=== PATIENT | male | born 1985 | race Caucasian/White ===

== ENCOUNTER → 2016-12-23 19:24 | Emergency (ER) | payer SELFPAY ==
[~2016-12-23 19:24] MED LIST: HYDROcodone/ACETAMIN 5-325 MG* 1 TAB PO ONE; Penicillin VK TAB* 250 MG PO ONE
[2016-12-23 21:07] VITALS: BP 141/94
--- NOTE | 2016-12-23 21:15 | ED ---
Throat Pain/Nasal Congestion - HPI Summary HPI Summary: Patient arrives to ED with CC of pain over right lower molar radiating to the jaw and ear with most pain radiating to the anterior jaw. Denies trismus, drooling or dysphagia. Pain is 10/10, sharp and throbbing. He has tried to take tylenol, ibuprofen, ambesol and orajel without relief. Denies airway compromise or SOB. Denies ear pain, eye pain, blurry vision or double vision. Otherwise healthy. Pain is worse with chewing and cold drinks, better with nothing. Patient denies dental care for several years. He is attempting to have all his teeth pulled and is working with [facility] for the appt. Pain has been present for several days with no worsening pain and slight swelling over the area of concern. Patient is a smoker. - History of Current Complaint Chief Complaint: EDDentalPain Time Seen by Provider: 12/23/16 20:01 Hx Obtained From: Patient Onset/Duration: Sudden Onset Severity: Moderate - Epiglottits Risk Factors Epiglottis Risk Factors: Negative - Allergies/Home Medications Allergies/Adverse Reactions: Allergies Allergy/AdvReac Type Severity Reaction Status Date / Time No Known Allergies Allergy Verified 12/23/16 19:34 PMH/Surg Hx/FS Hx/Imm Hx Previously Healthy: Yes Sensory History: Denies: Hx Contacts or Glasses Opthamlomology History: Denies: Hx Contacts or Glasses - Immunization History Hx Pertussis Vaccination: No Immunizations Up to Date: Unable to Obtain/Confirm Infectious Disease History: No Infectious Disease History: Denies: History Other Infectious Disease, Traveled Outside the [place] in Last 30 Days - Family History Known Family History: Positive: None - Social History Occupation: Employed Full-time Lives: With Family Alcohol Use: Occasionally Hx Substance Use: No Substance Use Type: Reports: None Hx Tobacco Use: Yes Smoking Status (MU): Heavy Every Day Tobacco Smoker Type: Cigarettes Have You Smoked in the Last Year: Yes Review of Systems Constitutional: Negative Eyes: Negative Positive: Dental Pain Cardiovascular: Negative Respiratory: Negative Positive: no symptoms reported, see HPI Neurological: Negative All Other Systems Reviewed And Are Negative: Yes Physical Exam Triage Information Reviewed: Yes Vital Signs On Initial Exam: Initial Vitals Temp Pulse Resp BP Pulse Ox 98.7 F 73 16 138/89 100 12/23/16 19:35 12/23/16 19:35 12/23/16 19:35 12/23/16 19:35 12/23/16 19:35 Vital Signs Reviewed: Yes Appearance: Positive: Well-Appearing, Well-Nourished Skin: Positive: Warm, Skin Color Reflects Adequate Perfusion Head/Face: Positive: Normal Head/Face Inspection Eyes: Positive: EOMI, KEREN, Conjunctiva Clear Dental: Positive: Percussion Tenderness @, Gross Decay/Caries @, Dental Fracture @ Neck: Positive: Supple, No Lymphadenopathy Respiratory/Lung Sounds: Positive: Clear to Auscultation, Breath Sounds Present Musculoskeletal: Positive: Normal, Strength/ROM Intact Neurological: Positive: Normal, Sensory/Motor Intact, Alert, Oriented to Person Place, Time Psychiatric: Positive: Normal AVPU Assessment: Alert Diagnostics - Vital Signs Vital Signs Temp Pulse Resp BP Pulse Ox 12/23/16 21:05 99.3 F 63 18 141/94 12/23/16 19:35 98.7 F 73 16 138/89 100 - Laboratory Lab Statement: Any lab studies that have been ordered have been reviewed, and results considered in the medical decision making process. EENT Course/Dx - Course Course Of Treatment: No dental abscess or lesions seen over area of concern. No erythema at site of pain. No drainage from area. Several dental caries, cavities, crowding and broken teeth throughout. Pain on palpation over left lower mandible. No TMJ tenderness. Pain with opening and closing the mouth. Slight trimus is noted on exam, but patient notes he does not wish to open wide d/t pain. Poor dental hygiene and outpatient dental care. Will treat for possible dental infection/abscess based on symptoms of pain and radiation to jaw and ear. No allergies. Will treat with Penicillin. ISTOP reveals no medication dispensed. Will give 3 days oxycodone for relief. He is given first doses of penicillin and oxycodone in the ED. Patient to follow up immediately with dentist. - Differential Diagnoses Differential Diagnoses: Dental Abscess, Dental Caries, Odontogenic Pain - Diagnoses Provider Diagnoses: Pain, dental Discharge - Discharge Plan Condition: Stable Disposition: HOME Prescriptions: Penicillin VK 500 MG TAB(NF) [Penicillin VK 500 mg Tab(NF)] 500 mg PO QID #28 tab MDD 4 oxyCODONE/Acetamin 10/325(NF) [Percocet 10/325 (NF)] 1 tab PO Q8H #9 tab MDD 3 Patient Education Materials: Toothache (ED) Referrals: No Primary Care Phys,NOPCP [Primary Care Provider] - Additional Instructions: You have been diagnosed with dental pain with possible infection: Antibiotics as prescribed to you. Penicillin four times daily for 7 days. To minimize the potential for gastrointestinal intolerance, Pencillin should be taken at the start of a meal. If you have any questions about your medication, please contact us or ask your pharmacist. Salt water rinses several times per day will improve healing time. Ibuprofen 600mg three times daily with meals for discomfort. For breakthrough pain, not well controlled with ibuprofen, you may take Oxycodone. DO NOT TAKE TYLENOL WHILE ON THE OXYCODONE May use lollicaines over the area for comfort. Follow up with a dentist for routine care to prevent recurrence of infections. If fever, worsening pain or swelling develops, see your PCP, dentist or come back to the Emergency Department.
== END | disposition home or self-care (01) ==
LOC: ED 19:24
DX: K08.89 Other specified disorders of teeth and supporting structures (principal); F17.210 Nicotine dependence, cigarettes, uncomplicated
CPT/HCPCS: 99281; A9270-GY

== ENCOUNTER 2017-01-14 01:27 | Emergency (ER) | payer SELFPAY ==
[2017-01-14] MEDS ORDERED: Pantoprazole IV* 40 MG IV ONE (01:44)
[2017-01-14] MEDS ORDERED: Ondansetron INJ* 2 MG/ML VIAL IV ONE (01:44)
[2017-01-14] MEDS ORDERED: NS 0.9% 1000 ML* 2,000 ML IV ONE (01:44)
[2017-01-14] MEDS ORDERED: Morphine INJ* 4 MG/ML 1 ML CARPUJECT IV ONE (01:44)
[2017-01-14 02:19] LABS: Hematocrit 48 % (42-52); Hemoglobin 16.8 g/dl (14.0-18.0); Mean Corpuscular HGB Conc 35 g/dl (31-36); Mean Corpuscular Hemoglobin 32 pg (27-31); Mean Corpuscular Volume 92 fL (80-94); Mean Platelet Volume 8 um3 (7.4-10.4); Red Blood Count 5.27 10^6/ul (4.0-5.4); Red Cell Distribution Width 14 % (10.5-15); White Blood Count 10.6 10^3/ul (3.5-10.8)
[2017-01-14 02:31] LABS: Albumin 4.9 g/dL (3.2-5.2); BUN/Creatinine Ratio 13.9 (8-20); C Reactive Protein 8.7 mg/L (< 5.00); Calcium 10.7 mg/dL (8.6-10.3); EGFR African American 103.2 (>60); EGFR Non-African American 80.3 (>60); Globulin 3.4 g/dL (2-4); Potassium 3.9 mmol/L (3.5-5.0); Total Bilirubin 1.3 mg/dL (0.2-1.0); Total Protein 8.3 g/dL (6.4-8.9)
[2017-01-14] MEDS ORDERED: Iohexol 300* (CONTRAST) 10 ML SDV IV ONE (04:20)
--- NOTE | 2017-01-14 05:13 | ED ---
Ryan Cortez Angela, scribed for Maria C Hubbard MD on 01/14/17 at 0138 . Abdominal Pain/Male - HPI Summary HPI Summary: This pt is a 31 y/o male [place] presenting to [facility] c/o abd pain x3 days associated with vomiting yesterday. Pt reports his symptoms started out with a cold 5 days ago. He states he had 11 episodes of emesis today. Pt describes his abd pain as constant waxing and waning, and his pain goes from 1 out of 10 in severity to a 10 out of 10 in severity very quickly. Pt notes his abd is bloated and is unable to tolerate PO fluids. Pt reports he is a heavy coffee drinker. He denies reflux and PMHx of pancreatitis. Pt is a current smoker but denies drug use. Pt has no PCP. - History of Current Complaint Chief Complaint: EDNauseaVomitDiarrh Stated Complaint: VOMITING Hx Obtained From: Patient Onset/Duration: Lasting Days Timing: Lasting Days Location: Epigastric Radiates: No Alleviating Factor(s): Nothing Associated Signs And Symptoms: Positive: Nausea, Vomiting, Other - cold symptoms 5 days ago. Negative: Chest Pain, Back Pain, Constipation, Blood in Stool, Diarrhea - Allergies/Home Medications Allergies/Adverse Reactions: Allergies Allergy/AdvReac Type Severity Reaction Status Date / Time No Known Allergies Allergy Verified 01/14/17 01:35 PMH/Surg Hx/FS Hx/Imm Hx Endocrine/Hematology History: Denies: Hx Diabetes Cardiovascular History: Denies: Hx Hypertension Sensory History: Denies: Hx Contacts or Glasses Opthamlomology History: Denies: Hx Contacts or Glasses Infectious Disease History: Denies: History Other Infectious Disease - Family History Known Family History: Positive: Other - Denies FHx of pancreatitis - Social History Lives: With Family - Alcohol Use: Occasionally Hx Substance Use: No Substance Use Type: Reports: None Hx Tobacco Use: Yes Smoking Status (MU): Heavy Every Day Tobacco Smoker Type: Cigarettes Have You Smoked in the Last Year: Yes Review of Systems Negative: Fever, Chills Eyes: Negative ENT: Negative Negative: Palpitations, Chest Pain Negative: Shortness Of Breath, Cough Positive: Abdominal Pain, Vomiting, Nausea Genitourinary: Negative Musculoskeletal: Negative Skin: Negative Negative: Headache, Weakness All Other Systems Reviewed And Are Negative: Yes Physical Exam Triage Information Reviewed: Yes Vital Signs On Initial Exam: Initial Vitals Temp Pulse Resp BP Pulse Ox 98.8 F 87 16 147/89 96 01/14/17 01:29 01/14/17 01:29 01/14/17 01:29 01/14/17 01:29 01/14/17 01:29 Vital Signs Reviewed: Yes Appearance: Positive: Well-Appearing, No Pain Distress Skin: Positive: Warm, Skin Color Reflects Adequate Perfusion, Dry Eyes: Positive: EOMI, KEREN ENT: Positive: Pharynx normal, TMs normal, Other - Dry mucous membranes Neck: Positive: Supple, Nontender Respiratory/Lung Sounds: Positive: Clear to Auscultation, Breath Sounds Present. Negative: Rales, Rhonchi, Wheezes Cardiovascular: Positive: RRR. Negative: Murmur, Rub, Other - gallop Abdomen Description: Positive: Soft, Other: - Epigastric tenderness. No rebound. Negative: Distended, Guarding Bowel Sounds: Positive: Present Musculoskeletal: Positive: Strength/ROM Intact. Negative: Edema Left, Edema Right Neurological: Positive: Sensory/Motor Intact, Alert, Oriented to Person Place, Time, CN Intact II-III Psychiatric: Positive: Affect/Mood Appropriate Diagnostics - Vital Signs Vital Signs Temp Pulse Resp BP Pulse Ox 01/14/17 04:30 73 128/83 97 01/14/17 04:00 64 123/80 96 01/14/17 03:30 62 124/78 01/14/17 03:00 61 120/78 01/14/17 02:30 71 123/85 01/14/17 02:24 75 01/14/17 02:23 70 01/14/17 02:22 120/82 01/14/17 02:06 18 01/14/17 01:29 98.8 F 87 16 147/89 96 - Laboratory Lab Results: Lab Results 01/14/17 01/14/17 Range/Units 01:40 01:40 WBC 10.6 (3.5-10.8) 10^3/ul RBC 5.27 (4.0-5.4) 10^6/ul Hgb 16.8 (14.0-18.0) g/dl Hct 48 (42-52) % MCV 92 (80-94) fL MCH 32 H (27-31) pg MCHC 35 (31-36) g/dl RDW 14 (10.5-15) % Plt Count 251 (150-450) 10^3/ul MPV 8 (7.4-10.4) um3 Neut % (Auto) 72.3 (38-83) % Lymph % (Auto) 19.6 L (25-47) % Steele % (Auto) 7.3 (1-9) % Eos % (Auto) 0.6 (0-6) % Baso % (Auto) 0.2 (0-2) % Absolute Neuts (auto) 7.7 (1.5-7.7) 10^3/ul Absolute Lymphs (auto) 2.1 (1.0-4.8) 10^3/ul Absolute Monos (auto) 0.8 (0-0.8) 10^3/ul Absolute Eos (auto) 0.1 (0-0.6) 10^3/ul Absolute Basos (auto) 0 (0-0.2) 10^3/ul Absolute Nucleated RBC 0.01 10^3/ul Nucleated RBC % 0.1 Sodium 138 (133-145) mmol/L Potassium 3.9 (3.5-5.0) mmol/L Chloride 90 L (101-111) mmol/L Carbon Dioxide 38 H (22-32) mmol/L Anion Gap 10 (2-11) mmol/L BUN 15 (6-24) mg/dL Creatinine 1.08 (0.67-1.17) mg/dL Est GFR ( Amer) 103.2 (>60) Est GFR (Non-Af Amer) 80.3 (>60) BUN/Creatinine Ratio 13.9 (8-20) Glucose 139 H (70-100) mg/dL Calcium 10.7 H (8.6-10.3) mg/dL Magnesium 2.0 (1.9-2.7) mg/dL Total Bilirubin 1.30 H (0.2-1.0) mg/dL AST 14 (13-39) U/L ALT 15 (7-52) U/L Alkaline Phosphatase 68 (34-104) U/L C-Reactive Protein 8.70 H (< 5.00) mg/L Total Protein 8.3 (6.4-8.9) g/dL Albumin 4.9 (3.2-5.2) g/dL Globulin 3.4 (2-4) g/dL Albumin/Globulin Ratio 1.4 (1-3) Lipase 35 (11.0-82.0) U/L Result Diagrams: 01/14/17 01:40 01/14/17 01:40 Lab Statement: Any lab studies that have been ordered have been reviewed, and results considered in the medical decision making process. - EKG 0136 Cardiac Rate: NL EKG Rhythm: Sinus Rhythm Abdominal Pain Fem Course/Dx - Course Course Of Treatment: pt with epigastric pain and labs that were normal pain not relieved with pain meds and fluids so pt is awaiting a cat scan , pt will be signed out to Dr. Gar in the am - Diagnoses Provider Diagnoses: Abdominal pain Discharge - Discharge Plan Condition: Stable Disposition: HOME The documentation as recorded by the Ryan krishnamurthy Angela accurately reflects the service I personally performed and the decisions made by , Maria C Hubbard MD.
[2017-01-14 06:36] VITALS: BP 126/74
--- NOTE | 2017-01-14 08:21 | RAD ---
INDICATION: Epigastric pain. COMPARISON: There are no prior studies available for comparison. TECHNIQUE: A CT scan of the abdomen and pelvis was performed with intravenous and oral contrast following intravenous injection of 114 ml of Omnipaque 300 nonionic contrast. Contiguous axial sections were obtained from the lung bases through the symphysis pubis. Images were reconstructed in the coronal and sagittal planes. FINDINGS: There is a minimal dependent infiltrate in the left lower lobe suggestive of subsegmental atelectasis. No pleural effusion is present. The liver and spleen are within normal limits in size without significant focal abnormality. No calcified gallstones are seen. The pancreas appears to be within normal limits in size. The kidneys and adrenal glands are normal in size. No hydronephrosis is seen. There are multiple hypodense lesions within the kidneys most consistent with cysts. Some are too small to characterize by CT. The aorta is normal in caliber and demonstrates homogeneous contrast opacification. No significant enlarged retroperitoneal lymph nodes are seen. The stomach, small and large bowel appear nondistended. The wall of the antrum and to a lesser extent body of the stomach appear thickened. This is a nonspecific finding although suggestive of gastritis. The appendix appears to be within normal limits. There is mild sigmoid diverticulosis. There is no evidence for diverticulitis or colitis. No free intraperitoneal air or fluid is seen. There is a small sclerotic lesion in the right ischial tuberosity suggestive of a benign bone island nonspecific. No other focal osseous abnormalities are seen. IMPRESSION: THERE IS NONSPECIFIC THICKENING OF THE GASTRIC WALL SUGGESTIVE OF GASTRITIS. CONSIDER ENDOSCOPY FOR FURTHER EVALUATION.
== END 2017-01-14 06:57 | disposition home or self-care (01) ==
LOC: ED 01:27
DX: R10.9 Unspecified abdominal pain (principal); R11.2 Nausea with vomiting, unspecified; F17.210 Nicotine dependence, cigarettes, uncomplicated
CPT/HCPCS: 36415; 74177; 80053; 83690; 83735; 85025; 86140; 93005; 96374; 96375; 99283; J2270; J2405; Q9967

== ENCOUNTER 2018-09-21 08:24 | Emergency (ER) | payer OTHER ==
[2018-09-21 09:07] LABS: Hematocrit 45 % (42-52); Hemoglobin 15.5 g/dL (14.0-18.0); Mean Corpuscular HGB Conc 34 g/dL (31-36); Mean Corpuscular Hemoglobin 32 pg (27-31); Mean Corpuscular Volume 94 fL (80-94); Mean Platelet Volume 7.9 fL (7.4-10.4); Platelet Count 218 10^3/uL (150-450); Red Blood Count 4.82 10^6 /uL (4.18-5.48); Red Cell Distribution Width 14 % (10.5-15); White Blood Count 6.4 10^3/uL (3.5-10.8)
--- NOTE | 2018-09-21 09:12 | ED ---
Upper Extremity Pain - HPI Summary HPI Summary: This patient is a 33 year old male presenting to [facility] with a chief complaint of left wrist pain. He works as a concrete stone finisher and states an inability to pick anything up with it and limited flexion. He states he would hold the stone with this non-dominant hand while hitting the stone using his right hand. He states no known source of injury. He reports multiple tick bites and new feelings of continued fatigue. The patient states he had a resolved rash months ago during hunting seeason that was not in a bulls-eye pattern. He rates his pain 3/10 in severity. Pt denies any fever, chills, erythema of eyes, sore throat, CP, SOB, cough, abdominal pain, N/V, dysuria, hematuria, myalgia, edema, recent rash, or dizziness. - History of Current Complaint Chief Complaint: EDExtremityUpper Stated Complaint: LEFT WRITST INJURY PER PT Time Seen by Provider: 09/21/18 08:53 Hx Obtained From: Patient Mechanism Of Injury: Unknown Timing: Constant - Allergies/Home Medications Allergies/Adverse Reactions: Allergies Allergy/AdvReac Type Severity Reaction Status Date / Time No Known Allergies Allergy Verified 09/21/18 08:37 PMH/Surg Hx/FS Hx/Imm Hx Endocrine/Hematology History: Denies: Hx Diabetes Cardiovascular History: Denies: Hx Hypertension History: Denies: Hx Renal Disease Sensory History: Denies: Hx Contacts or Glasses Opthamlomology History: Denies: Hx Contacts or Glasses - Immunization History Date of Tetanus Vaccine: unk Date of Influenza Vaccine: unk Infectious Disease History: No Infectious Disease History: Denies: History Other Infectious Disease, Traveled Outside the [place] in Last 30 Days - Family History Known Family History: Positive: Other - Denies FHx of pancreatitis - Social History Alcohol Use: None Hx Substance Use: No Substance Use Type: Reports: None Hx Tobacco Use: Yes Smoking Status (MU): Heavy Every Day Tobacco Smoker Type: Cigarettes Have You Smoked in the Last Year: Yes Review of Systems Positive: Fatigue. Negative: Fever, Chills Negative: Erythema Negative: Sore Throat Negative: Chest Pain Negative: Shortness Of Breath, Cough Negative: Abdominal Pain, Vomiting, Nausea Negative: dysuria, hematuria Positive: Arthralgia. Negative: Myalgia, Edema Negative: Rash Neurological: Other - Neg: Dizzines All Other Systems Reviewed And Are Negative: No Physical Exam - Summary Physical Exam Summary: Constitutional: Well-developed, Well-nourished, Alert. (-) Distressed Skin: Warm, Dry HENT: Normocephalic; Atraumatic Eyes: Conjunctiva normal Neck: Musculoskeletal ROM normal neck. (-) JVD, (-) Stridor, (-) Tracheal deviation Cardio: Rhythm regular, rate normal, Heart sounds normal; Intact distal pulses; The pedal pulses are 2+ and symmetric. Radial pulses are 2+ and symmetric. (-) Murmur Pulmonary/Chest wall: Effort normal. (-) Respiratory distress, (-) Wheezes, (-) Rales Abd: Soft, (-) tenderness, (-) Distension, (-) Guarding, (-) Rebound Musculoskeletal: (-) Edema Lymph: (-) Cervical adenopathy Neuro: Alert, Oriented x3 Psych: Mood and affect Normal Triage Information Reviewed: Yes Vital Signs On Initial Exam: Initial Vitals Temp Pulse Resp BP Pulse Ox 98.6 F 75 18 129/89 98 09/21/18 08:33 09/21/18 08:33 09/21/18 08:33 09/21/18 08:33 09/21/18 08:33 Vital Signs Reviewed: Yes Diagnostics - Vital Signs Vital Signs Temp Pulse Resp BP Pulse Ox 09/21/18 08:33 98.6 F 75 18 129/89 98 - Laboratory Result Diagrams: 09/21/18 08:55 09/21/18 08:55 Lab Statement: Any lab studies that have been ordered have been reviewed, and results considered in the medical decision making process. - Radiology Wrist XR Radiology Interpretation Completed By: Radiologist Summary of Radiographic Findings: No fracture of the wrist is noted. ED provider has reviewed this report. Course/Dx - Course Course Of Treatment: This patient is a 33 year old male presenting to [facility] with a chief complaint of left wrist pain. Left wrist XR is unremarkable for fracture. Do not suspect septic joint. Tick exposure have been remote. No joint effusion. Inflammatory markers are negative. Lyme serologies are pending. A plan for discharge and referrals to PCP and a hand surgeon were discussed with the patient and he was agreeable with this plan. - Diagnoses Provider Diagnoses: Left wrist tendonitis Discharge - Sign-Out/Discharge Documenting (check all that apply): Patient Departure - Discharge Patient Received Moderate/Deep Sedation with Procedure: No - Discharge Plan Condition: Stable Disposition: HOME Prescriptions: Ibuprofen TAB* [Motrin TAB* 600 MG] 600 mg PO Q6H PRN #10 tab PRN Reason: Pain - Moderate To Severe Patient Education Materials: Tendinitis (ED) Referrals: Keren Rob MD [Medical Doctor] - [facility] [Outside] Additional Instructions: Stay OFF work until symptoms resolve. Return to ED with any new or worsening symptoms. - Attestation Statements Document Initiated by Scribe: Yes Documenting Scribe: Ilan Ferguson Provider For Whom Scribe is Documenting (Include Credential): Heri Estrada MD Scribe Attestation: IIlan, scribed for Heri Estrada MD on 09/21/18 at 1029. Status of Scribe Document: Ready
[2018-09-21 09:26] LABS: Albumin 4.3 g/dL (3.2-5.2); Albumin/Globulin Ratio 1.7 (1-3); BUN/Creatinine Ratio 10.5 (8-20); CRP High Sensitivity 2.81 mg/L (<2.00); Calcium 9.5 mg/dL (8.6-10.3); EGFR African American 111.2 (>60); EGFR Non-African American 91.9 (>60); Globulin 2.6 g/dL (2-4); Potassium 4.5 mmol/L (3.5-5.0); Total Bilirubin 1.2 mg/dL (0.2-1.0); Total Protein 6.9 g/dL (6.4-8.9)
[2018-09-21] MEDS ORDERED: Ibuprofen TAB* 600 MG PO ONE (10:25)
[2018-09-21 10:53] VITALS: BP 128/71
[2018-09-23 18:36] LABS: B garinii/B afzelii PCR Negative (Negative); B mayonii PCR Negative (Negative)
== END 2018-09-21 10:41 | disposition home or self-care (01) ==
LOC: ED 08:24
DX: M77.9 Enthesopathy, unspecified (principal); F17.210 Nicotine dependence, cigarettes, uncomplicated
CPT/HCPCS: 36415; 80053; 84550; 85027; 86141; 87476; 87798; 99283; A9270-GY

== ENCOUNTER 2018-11-11 13:21 | Emergency (ER) | payer OTHER ==
[2018-11-11] MEDS ORDERED: Naproxen TAB* 250 MG PO ONE (15:08)
[2018-11-11 15:32] VITALS: BP 115/74
--- NOTE | 2018-11-11 15:34 | ED ---
Abdominal Pain/Male - HPI Summary HPI Summary: Patient is a 33-year-old male who presents emergency department for lower abdominal pain after jumping from a diving board. Incident happened about 3 hours ago. Patient states he was swimming at [employer] [place]formerly [employer] when he jumped up on the diving board, stretched back and felt a pull in his lower abdomen. Pt. denies any other injuries. He denies h/a, cp, sob, back pain, hematuria, numbness, tingling or weakness. Sxs are mild in severity. Pt. states he feels like a pulled a muscle. No past medical hx. Movement makes sxs worse. Rest makes sxs better. - History of Current Complaint Chief Complaint: EDAbdPain Stated Complaint: POSS ABD INJURY PER PATIENT Time Seen by Provider: 11/11/18 14:42 Hx Obtained From: Patient Pain Intensity: 9 - Allergies/Home Medications Allergies/Adverse Reactions: Allergies Allergy/AdvReac Type Severity Reaction Status Date / Time No Known Allergies Allergy Verified 11/11/18 13:29 PMH/Surg Hx/FS Hx/Imm Hx Previously Healthy: Yes Endocrine/Hematology History: Denies: Hx Diabetes Cardiovascular History: Denies: Hx Hypertension History: Denies: Hx Renal Disease Sensory History: Denies: Hx Contacts or Glasses Opthamlomology History: Denies: Hx Contacts or Glasses - Immunization History Date of Tetanus Vaccine: unk Date of Influenza Vaccine: unk Infectious Disease History: No Infectious Disease History: Denies: History Other Infectious Disease, Traveled Outside the [place] in Last 30 Days - Family History Known Family History: Positive: Other - Denies FHx of pancreatitis, Non- Contributory - Social History Occupation: Employed Full-time Lives: With Family Alcohol Use: None Hx Substance Use: No Substance Use Type: Reports: None Hx Tobacco Use: Yes Smoking Status (MU): Heavy Every Day Tobacco Smoker Type: Cigarettes Have You Smoked in the Last Year: Yes Review of Systems Cardiovascular: Negative Negative: Chest Pain Respiratory: Negative Negative: Shortness Of Breath Positive: Abdominal Pain. Negative: Vomiting Genitourinary: Negative Negative: flank pain, hematuria Musculoskeletal: Negative Skin: Negative Negative: Bruising Neurological: Negative Negative: Headache All Other Systems Reviewed And Are Negative: Yes Physical Exam Triage Information Reviewed: Yes Vital Signs On Initial Exam: Initial Vitals Temp Pulse Resp BP Pulse Ox 98.2 F 82 14 116/75 99 11/11/18 13:26 11/11/18 13:26 11/11/18 13:26 11/11/18 13:26 11/11/18 13:26 Vital Signs Reviewed: Yes Appearance: Positive: Well-Appearing - Pt. lying in bed in NAD. Skin: Positive: Warm, Dry Head/Face: Positive: Normal Head/Face Inspection Eyes: Positive: Normal, EOMI Neck: Positive: Supple, Nontender Respiratory/Lung Sounds: Positive: Clear to Auscultation, Breath Sounds Present Cardiovascular: Positive: Normal, RRR Abdomen Description: Positive: Other: - Abd. is soft with tenderness across lower abd. No rebound tenderness or guarding. No ecchymosis or edema. No flank pain. Musculoskeletal: Positive: Normal, Strength/ROM Intact Neurological: Positive: Normal, Alert, Oriented to Person Place, Time, CN Intact II-III Psychiatric: Positive: Affect/Mood Appropriate Diagnostics - Vital Signs Vital Signs Temp Pulse Resp BP Pulse Ox 11/11/18 13:26 98.2 F 82 14 116/75 99 - Laboratory Lab Statement: Any lab studies that have been ordered have been reviewed, and results considered in the medical decision making process. Abdominal Pain Male Course/Dx - Course Course Of Treatment: Pt. presenting with lower abd. pain after jumping up and stretching back. VS stable. Exam unremarkable other than pain. Given injury and exam suspect abd. wall muscle strain. Pt. given ice pack and naproxen. Advised to continue motrin as directed. Ice intermittently. Activity as tolerated. To return to ER if sxs change or woresn. Pt. understands and agrees with plan. - Diagnoses Provider Diagnoses: Abdominal muscle strain Discharge - Sign-Out/Discharge Documenting (check all that apply): Patient Departure Patient Received Moderate/Deep Sedation with Procedure: No - Discharge Plan Condition: Good Disposition: HOME Patient Education Materials: Muscle Strain (ED) Referrals: [facility] [Outside] Additional Instructions: Follow up with the [facility] in 2-3 days for recheck Ice intermittently Ibuprofen 600mg-800mg every 8 hours for pain Activity as tolerated Return to ER if symptoms change or worsen - Billing Disposition and Condition Condition: GOOD Disposition: Home
== END 2018-11-11 15:31 | disposition home or self-care (01) ==
LOC: ED 13:21
DX: S39.011A Strain of muscle, fascia and tendon of abdomen, initial encounter (principal); W16.92XA Jumping or diving into unspecified water causing other injury, initial encounter; Y93.12 Activity, springboard and platform diving; Y92.830 Public park as the place of occurrence of the external cause; F17.210 Nicotine dependence, cigarettes, uncomplicated
CPT/HCPCS: 99281; A9270-GY

== ENCOUNTER 2023-10-08 18:09 | Observation (INO) ==
[2023-10-08 18:28] LABS: ABS Eosinophils 0.1 10^3/uL (0.0-0.5); ABS Lymphocytes 3.4 10^3/uL (1.0-4.8); ABS Monocytes 0.7 10^3/uL (0.0-1.1); ABS Neutrophils 3.2 10^3/uL (1.5-7.6); ABS Nucleated RBC 0.01 10^3/ul; Eosinophil % 1.3 %; Hematocrit 44.5 % (38-53); Hemoglobin 15.4 g/dL (13.2-16.3); Lymphocyte % 46.2 %; Mean Corpuscular Hemoglobin 32.7 pg (27-33); Mean Corpuscular Hgb Conc 34.5 g/dL (31-36); Mean Corpuscular Volume 94.7 fL (80-97); Mean Platelet Volume 7.5 fL (7.5-11.2); Nucleated Red Blood Cells % 0.1 %/100WBC (0.0-0.8); Platelet Count 218 10^3/uL (150-450); Red Blood Count 4.69 10^6/uL (4.06-5.63); Red Cell Distribution Width 13.4 % (12-17); White Blood Count 7.4 10^3/uL (3.6-10.2)
[2023-10-08 18:43] LABS: Activated Partial Thrombo Time 29.5 seconds (26.0-38.0); INR 0.96 (0.83-1.13)
[2023-10-08 19:01] LABS: Albumin 4.9 g/dL (3.2-5.2); Albumin/Globulin Ratio 2.2 (1-3); Calcium 9.6 mg/dL (8.6-10.3); Creatinine, Serum 1.04 mg/dL (0.67-1.17); Direct Bilirubin 0.1 mg/dL (0.03-0.18); Globulin 2.2 g/dL (2-4); HDL Cholesterol 32.7 mg/dL; Indirect Bilirubin 0.9 mg/dL (0.3-1.0); Potassium 3.8 mmol/L (3.5-5.0); Total Protein 7.1 g/dL (6.4-8.9); eGFR CKD-EPI 94.8 (>60)
[2023-10-08] MEDS: Metoclopramide 5 MG/ML VIAL (10 mg) IV ONE (19:09)
[2023-10-09 01:57] LABS: HDL Cholesterol 27.8 mg/dL
[2023-10-09] MEDS: HYDROcodone/ACETAMIN 5/325 mg TAB PO PRN (06:21)
[2023-10-09 06:23] LABS: Urine Appearance Clear; Urine Bilirubin Negative (Negative); Urine Blood Negative (Negative); Urine Color Yellow; Urine Glucose Negative (Negative); Urine Ketones Negative (Negative); Urine Nitrite Negative (Negative); Urine Protein Trace (Negative); Urine Specific Gravity >1.050 (1.002-1.030); Urine Urobilinogen Negative (Negative); Urine pH 5.5 (5.0-8.0)
[2023-10-09] MEDS: Iodixanol (CONTRAST) 320 MG/ML 100 ML SDV IV ONE (22:59)
[2023-10-09] MEDS: Sulfur Hexaflouride MICROSPHR 25 MG VIAL IV ONE (22:59)
[2023-10-10 05:57] VITALS: BP 126/91
== END 2023-10-10 10:30 | disposition short-term general hospital (02) ==
LOC: ED 18:09 → EDHOLD 18:09 → SUATTDRO 20:17 → MEDTELE 10-09 16:48
PROVIDERS: ADMIT Internal Medicine; ATTEND Internal Medicine